=== PATIENT | male | born 1975 | race Caucasian/White ===

== ENCOUNTER 2021-05-26 19:07 | Emergency (ER) | payer OTHER ==
[~2021-05-26 19:07] MED LIST: IBUPROFEN800 MG PO
[2021-05-26 19:42] LABS: HEMOGLOBIN 16.4 gm/dl (14.0-17.5); RED BLOOD COUNT 5.67 M/UL (4.20-5.50)
[2021-05-26 20:00] LABS: BUN/CREATININE RATIO 15 (0-10)
== END 2021-05-26 22:12 | disposition home or self-care (01) ==
LOC: ER1 19:07
PROVIDERS: Physician Assistant
DX: S39.011A Strain of muscle, fascia and tendon of abdomen, initial encounter (principal); I10 Essential (primary) hypertension; X58.XXXA Exposure to other specified factors, initial encounter
CPT/HCPCS: 80053; 81001; 83690; 85025; 87086; 99284; Q9967